=== PATIENT | female | born 1960 | race Caucasian/White ===

== ENCOUNTER 2017-02-05 07:30 | Inpatient (IN) | payer BC ==
--- NOTE | 2017-01-20 14:00 | NUR ---
JOINT REPLACEMENT PREOP CLASS PATIENT ATTENDED JOINT REPLACEMENT PREOP CLASS. CASE MANAGEMENT CONTACT INFORMATION PROVIDED. EDUCATION WAS PROVIDED REGARDING WHAT TO EXPECT BEFORE, DURING AND AFTER SURGERY. INCLUDING: OVERVIEW OF ANATOMY AND PHYSIOLOGY HOSPITAL TREATMENT SCHEDULE THERAPY DEMONSTRATION CASE MANAGEMENT RESPONSIBILITIES DISCHARGE PLANNING EQUIPMENT NEEDS JOINT REPLACEMENT WORKBOOK ANTI-COAGULATION SURGERY STRONG NUTRITIONAL PROTOCOL DISCHARGE INSTRUCTIONS [facility] PATIENT PORTAL, WITH INSTRUCTIONS CJR AND PREOP SURVERY PREOP BATHING- CHG GIVEN ALL PATIENT'S QUESTIONS ANSWERED TO THEIR SATISFACTION. PATIENTS AND COACHES ENCOURAGED TO CALL WITH ANY ADDITIONAL QUESTIONS OR CONCERNS. CM FOLLOWING FOR TRANSITIONAL CARE PLANNING NEEDS DURING HOSPITALIZATION.
[~2017-02-05] VITALS: Ht 162.6 cm; Wt 102.0 kg
[2017-02-05] VITALS (24 sets, daily range): BP systolic 125–189; BP diastolic 65–90; PULSE 54–78; RESP 12–20; TEMP 97.6–98.5; O2SAT 91–98; Ht 162.6 cm; Wt 102.0 kg
[~2017-02-05 07:30] MED LIST: ACET-2723 PO; ACETAMINOPHEN 500 MG TABLET PO ONE; DEXAMETHASONE 4mg/ml - 1ml INJECTION IV ONE; ENOX100D SQ; ENOX80DI SQ; FAMOTIDINE 20mg IVPB 50 ML IV ONE; GLUC100015 PO; LIDOCAINE 1% (10mg/ml) 2ml SDV SQ ONE; LR 1,000 ML IV SCH; METOCLOPRAMIDE 10mg/2ml INJECTION IV ONE; MULT1TAB69 PO; NOZIN NASAL SWAB NS ONE; ONDANSETRON 4mg/2ml INJECTION IV ONE; WARF10TA21 PO; [UNRECOGNIZED DRUG - CODE] PO
--- OUTSIDE RECORDS SUMMARY | 2017-02-05 07:53 | XMS REPORT | Continuity of Care Document ---
Author Author [facility] Organization [facility] Address Unknown Phone Unavailable Care Team Providers Care Straddle Truck Driver Name Role Phone ISSA SKINNER MD Primary Care Physician [phone] Insurance Providers Payer Name Policy Number Subscriber Name Relationship [facility] [id number] Avis Shell 18 Self Advance Directives Directive Response Recorded Date/Time Ordered Resuscitation Status Full Code 11/08/14 11:34am Resuscitation Documents on File No 11/08/14 10:43am Problems No known problems or medical conditions. Medications Medication Dose Route Sig Days/Qty Instructions Order Date Discontinued Date Status Warfarin Sodium 10 Mg PO EVERY OTHER DAY 04/04/09 Active Warfarin Sodium 12.5 Mg PO EVERY OTHER DAY 04/04/09 Active Enoxaparin Sodium 70 Mg SQ DAILY 04/05/09 Active Calcium Carb/Vit D3/Minerals 1 Tab PO DAILY 11/08/14 Active Fish Oil/Dha/Epa 1,200 Mg PO DAILY 11/08/14 Active Multivitamin 1 Tab PO DAILY 11/08/14 Active Social History Social History Problem Response Recorded Date/Time Chewing Tobacco Status No 11/08/2014 10:39am Hx Substance Use No 11/08/2014 10:39am Hx Alcohol Use Y RARE 11/08/2014 10:39am Has the pt used tobacco in the last 12 months No 11/08/2014 10:39am Query Response Start Date Stop Date Smoking Status Never smoker Hospital Discharge Instructions No hospital discharge instructions. Plan of Care No plan of care. Functional Status No functional status results. Allergies, Adverse Reactions, Alerts Allergen Type Severity Reaction Status Last Updated No Known Drug Allergies Allergy Unknown Active 04/04/09 Immunizations Name Given Type Hx Influenza Vaccination Y 09/2014 Historical Hx Pneumococcal Vaccination No Historical Hx Influenza Vaccination Y 09/2014 Historical Vital Signs Acute Vital Signs Vital Response Date/Time Temperature (Fahrenheit) 98.2 deg F (96.8 - 99.1) Temperature (Calculated Celsius) 36.94174 degrees C (36.0 - 37.3) Temperature Source Temporal Pulse Rate (adult) 69 bpm (60 - 100) Respiratory Rate 17 breaths/min (10 - 20) O2 Sat by Pulse Oximetry 96 % (90 - 100) Oxygen Delivery Method Room Air Blood Pressure 164/84 mm Hg Blood Pressure Source Automatic Cuff Height 5 ft 5.5 in Weight 227 lb Body Mass Index 37.0 kg/m^2 Results Test Source Date Result Interp. Ref. Range Comments Activated Partial Thromboplast Time April 05, 2009 11:49am 23.3 SEC L 25- 36 Anion Gap April 05, 2009 11:49am 7.8 MEQ/L N 5-15 BUN/Creatinine Ratio April 05, 2009 11:49am 22 RATIO N 6-26 Basophils # (Auto) April 05, 2009 11:49am 0.0 T/MM3 N 0-0.2 Basophils (%) (Auto) April 05, 2009 11:49am 0.7 % N 0-2 Blood Urea Nitrogen April 05, 2009 11:49am 17.8 MG/DL H 7-17 Calcium Level April 05, 2009 11:49am 9.3 MG/DL N 8.4-10.2 Calculated Osmolality April 05, 2009 11:49am 276 MOSM/KG N 261-280 Carbon Dioxide Level April 05, 2009 11:49am 33 MEQ/L H 22-30 Chloride Level April 05, 2009 11:49am 102 MEQ/L N 98-107 Creatinine April 05, 2009 11:49am 0.8 MG/DL N 0.7-1.2 Eosinophils # (Auto) April 05, 2009 11:49am 0.1 T/MM3 N 0-0.5 Eosinophils (%) (Auto) April 05, 2009 11:49am 1.3 % N 0-4 Glomerular Filtration Rate Calc April 05, 2009 11:49am 77 - Glucose Level April 05, 2009 11:49am 78 MG/DL N 65-110 Hematocrit April 05, 2009 11:49am 42.8 % N 36-46 Hemoglobin April 05, 2009 11:49am 14.0 GM/DL N 12-16 Lymphocytes # (Auto) April 05, 2009 11:49am 1.9 T/MM3 N 1-4.8 Lymphocytes (%) (Auto) April 05, 2009 11:49am 41.8 % N 23-45 Mean Corpuscular Hemoglobin April 05, 2009 11:49am 31.5 UUG N 26-34 Mean Corpuscular Hemoglobin Concent April 05, 2009 11:49am 32.7 GM/DL N 31-37 Mean Corpuscular Volume April 05, 2009 11:49am 96.2 UM3 N 80-100 Mean Platelet Volume April 05, 2009 11:49am 10.3 UM3 N 7.4-10.4 Monocytes # (Auto) April 05, 2009 11:49am 0.4 T/MM3 N 0-0.8 Monocytes (%) (Auto) April 05, 2009 11:49am 8.8 % N 0-9.0 Neutrophils # (Auto) April 05, 2009 11:49am 2.2 T/MM3 N 1.8-7.7 Neutrophils (%) (Auto) April 05, 2009 11:49am 47.4 % N 33-66 Platelet Count April 05, 2009 11:49am 213 T/MM3 N 130-400 Potassium Level April 05, 2009 11:49am 4.5 MEQ/L N 3.6-5 Prothromb Time International Ratio November 09, 2014 9:23am 1.20 H 0.81- 1.09 THERAPUTIC RANGE=2.00-3.00 FOR ANTI-THROMBOSIS THERAPUTIC RANGE=2.50- 3.50 FOR IMPLANTED VALVE RDW Standard Deviation April 05, 2009 11:49am 48.2 FL N 36.9-50.2 Red Blood Count April 05, 2009 11:49am 4.45 M/MM3 N 4.00-5.20 Sodium Level April 05, 2009 11:49am 143 MEQ/L N 134-144 White Blood Count April 05, 2009 11:49am 4.6 T/MM3 N 4.5-11.0 Procedures Procedure Status Date Provider(s) Colonoscopy completed 11/09/14 BRANDYN JONES MD, FACS, CWS
--- OUTSIDE RECORDS SUMMARY | 2017-02-05 07:53 | XMS REPORT | Continuity of Care Document ---
Author Author [facility] Organization [facility] Address Unknown Phone Unavailable Care Team Providers Care Professional Shopper Name Role Phone ISSA SKINNER MD Primary Care Physician [phone] Insurance Providers Payer Name Policy Number Subscriber Name Relationship [facility] [id number] Avis Shell 18 Self Advance Directives Directive Response Recorded Date/Time Resuscitation Documents on File No 11/11/14 1:06pm Problems No known problems or medical conditions. [...] History Social History Problem Response Recorded Date/Time Hx Substance Use No 11/08/2014 10:39am Hx Alcohol Use Y RARE 11/08/2014 10:39am Has the pt used tobacco in the last 12 months No 11/11/2014 1:05pm Query Response Start Date Stop Date Smoking Status Never smoker Hospital Discharge Instructions No hospital discharge instructions. Plan of Care No plan of care. Functional Status No functional status results. Allergies, Adverse Reactions, Alerts Allergen Type Severity Reaction Status Last Updated No Known Drug Allergies Allergy Unknown Active 11/11/14 Immunizations Name Given Type Hx Influenza Vaccination Y 09/2014 Historical Hx Pneumococcal Vaccination No Historical Hx Influenza Vaccination Y 09/2014 Historical Vital Signs Acute Vital Signs Vital Response Date/Time Temperature (Fahrenheit) 97.5 deg F (96.8 - 99.1) Temperature (Calculated Celsius) 36.77521 degrees C (36.0 - 37.3) Temperature Source Temporal Pulse Rate (adult) 64 bpm (60 - 100) Respiratory Rate 16 breaths/min (10 - 20) Height 5 ft 5 in Weight 235 lb Body Mass Index 39.0 kg/m^2 Results Test Source Date Result Interp. [...] 05, 2009 11:49am 1.3 % N 0-4 Glucose Level April 05, 2009 11:49am 78 [...] 05, 2009 11:49am 4.6 T/MM3 N 4.5-11.0 Glomerular Filtration Rate Calc April 05, 2009 11:49am 77 - Procedures Procedure Status Date Provider(s) Colonoscopy with polypectomy and biopsy completed 11/09/14 BRANDYN JONES MD, FACS, CWS Encounters Encounter Location Date/Time Discharged Recurring [facility] 11/12/14 12:45pm
--- OUTSIDE RECORDS SUMMARY | 2017-02-05 07:53 | XMS REPORT | Referral Summary ---
Author Author [facility] Organization [facility] Address Unknown Phone Unavailable Care Team Providers Care Credit Representative Name Role Phone Whitney Orellana Primary Care Physician [phone] Encounter Date(s): 07/02/16 - 07/02/16 [facility] [address] [place] [address] Discharge Diagnosis: Hypertension Discharge Diagnosis: Bilateral knee pain Discharge Diagnosis: Obesity Discharge Diagnosis: Well woman exam (no gynecological exam) Discharge Diagnosis: Anticoagulant long-term use Discharge Diagnosis: Dyslipidemia Discharge Disposition: 01-Home or Self Care Attending Physician: Jeannette Haynes APRN Admitting Physician: Jeannette Haynes APRN Vital Signs Most recent to 1 oldest [Reference Range]: Temperature Tympanic 36.3 degC [36.6-38.1 degC] *LOW* (07/02/16 8:34 AM) Peripheral Pulse 78 bpm Rate [60-100 bpm] (07/02/16 8:34 AM) Blood Pressure 144/94 mmHg [90-140/60-90 mmHg] *HI* (07/02/16 8:34 AM) Problem List Condition Effective Dates Status Health Status Informant Carpal tunnel Active syndrome(Confirmed) Ovarian Active cyst(Confirmed) Dyslipidemia(Confirm Active ed) Factor VIII Active deficiency(Confirmed ) Anticoagulant Active long-term use(Confirmed) History of DVT of < 09/07/14 Resolved lower extremity(Confirmed) Hypertension(Confirm Active ed) Obesity(Confirmed) Active Allergies, Adverse Reactions, Alerts No Known Medication Allergies Medications Fish Oil 1000 mg oral capsule 1 caps, Oral, Daily, 0 Refill(s) Start Date: 09/05/14 Status: Ordered glucosamine/chondroitin/methylsulfonylmethane 2 tabs, Oral, Daily, 0 Refill(s) Start Date: 07/02/16 Status: Ordered Misc Medication calcium 1200 mg and 1,000 IU vit D3, 0 Refill(s) Start Date: 07/02/16 Status: Ordered multivitamin 1 tabs, Oral, Daily, 50+, 0 Refill(s) Start Date: 09/05/14 Status: Ordered Tylenol Extra Strength 1,000 mg, Oral, BID, as needed for pain, 0 Refill(s) Start Date: 07/02/16 Status: Ordered warfarin 5 mg oral tablet See Instructions, TAKE 2 TABLETS BY MOUTH EVERY DAY or as instructed by , # 200 tabs, 3 Refill(s), Pharmacy: [facility] (Mail Order) Electronic, TAKE 2 TABLETS BY MOUTH EVERY DAY or as instructed by Start Date: 06/11/16 Status: Ordered Results Hematology Most recent to 1 oldest [Reference Range]: WBC [4.8-10.8 2.7 10*3/uL 10*3/uL] *LOW* (07/02/16 9:15 AM) RBC [4.00-5.20] 4.50 (07/02/16 9:15 AM) Hgb [12.0-16.0 14.0 gm/dL gm/dL] (07/02/16 9:15 AM) Hct [37.0-47.0 %] 40.9 % (07/02/16 9:15 AM) MCV [82.0-99.0 fL] 90.9 fL (07/02/16 9:15 AM) MCH [27.0-32.0 pg] 31.1 pg (07/02/16 9:15 AM) MCHC [32.0-36.0 34.2 gm/dL gm/dL] (07/02/16 9:15 AM) RDW [11.5-14.5 %] 15.4 % *HI* (07/02/16 9:15 AM) Platelet [150-400 219 10*3/uL 10*3/uL] (07/02/16 9:15 AM) MPV [8.8-14.8 fL] 11.0 fL (07/02/16 9:15 AM) Neutrophils [51-75 40 % %] *LOW* (07/02/16 9:15 AM) Lymphocytes [20-46 41 % %] (07/02/16 9:15 AM) Abn Lymph Man [0-5 2 % %] (07/02/16 9:15 AM) Monocytes [4-11 %] 15 % *HI* (07/02/16:15 AM) Eosinophils [0-4 %] 1 % (07/02/16 9:15 AM) Basophils [0-2 %] 1 % (07/02/16 9:15 AM) Neutro Absolute 1.08 10*3 [1.90-7.00 10*3] *LOW* (07/02/16:15 AM) Lymph Absolute 1.16 10*3 [0.80-3.30 10*3] (07/02/16 9:15 AM) Mckinley Absolute 0.41 10*3 [0.30-1.00 10*3] (07/02/16:15 AM) Eos Absolute 0.03 10*3 [0.00-0.50 10*3] (07/02/16 9:15 AM) Baso Absolute 0.03 10*3 [0.00-0.20 10*3] (07/02/16:15 AM) Differential Manual *ABN* (07/02/16:15 AM) Coagulation Most recent to 1 oldest [Reference Range]: PT Venous (07/02/16:15 AM) INR [0.8-1.2] 1.8 1 *HI* (07/02/16 9:15 AM) 1Result Comment: Normal (no anticoagulant): 0.8 - 1.2 Units Routine Therapeutic Range: 2.0 - 3.0 Units High Risk Therapeutic Range: 2.5 - 3.5 Units Chemistry Most recent to 1 oldest [Reference Range]: Sodium Lvl [135-144 140 mEq/L mEq/L] (07/02/16:15 AM) Potassium Lvl 4.3 mEq/L [3.5-5.2 mEq/L] (07/02/16:15 AM) Chloride [99-111 105 mEq/L mEq/L] (07/02/16 9:15 AM) CO2 [22-31 mEq/L] 31 mEq/L (07/02/16 9:15 AM) AGAP [3-20] 4 (07/02/16 9:15 AM) BUN [10-20 mg/dL] 14 mg/dL (07/02/16:15 AM) Glucose Lvl [70-99 86 mg/dL mg/dL] (07/02/16:15 AM) Creatinine Lvl 0.76 mg/dL [0.57-1.11 mg/dL] (07/02/16:15 AM) eGFR [>60 mL/min] >60 mL/min 1 (07/02/16:15 AM) Calcium Lvl 9.6 mg/dL [8.9-10.5 mg/dL] (07/02/16:15 AM) Albumin Lvl [3.5-5.0 4.1 gm/dL gm/dL] (07/02/16:15 AM) Total Protein 6.5 gm/dL [6.1-7.7 gm/dL] (07/02/16:15 AM) Globulin [1.8-4.0 2.4 gm/dL gm/dL] (07/02/16:15 AM) ALT [0-55 U/L] 13 U/L (07/02/16:15 AM) AST [5-34 U/L] 19 U/L (07/02/16:15 AM) Alk Phos [40-150 59 U/L U/L] (07/02/16:15 AM) Bili Total [0.2-1.2 1.1 mg/dL mg/dL] (07/02/16:15 AM) Chol [0-199 mg/dL] 225 mg/dL *HI* (07/02/16:15 AM) Trig [0-149 mg/dL] 60 mg/dL (07/02/16:15 AM) HDL [40-84 mg/dL] 61 mg/dL (07/02/16:15 AM) LDL [0-130 mg/dL] 152 mg/dL *HI* (07/02/16:15 AM) VLDL Cholesterol 12 mg/dL [0-28 mg/dL] (07/02/16:15 AM) Cardiac Risk 3.7 [0.0-5.0] (07/02/16:15 AM) TSH with Reflex Free 2.06 T4 [0.35-4.94] (07/02/16 9:15 AM) Hgb A1c [4.1-5.6 %] 4.9 % (07/02/16 9:15 AM) eAvg Glucose 93.9 mg/dL (07/02/16 9:15 AM) 1Result Comment: Multiply eGFR results by 1.21 for race. Immunizations Vaccine Date Refusal Reason tetanus/diphth/pertuss (Tdap) adult/adol 09/28/12 influenza virus vaccine, inactivated 07/02/16 influenza virus vaccine, inactivated1 09/07/14 influenza virus vaccine, live 09/28/12 1Result Comment: [09/07/2014] see scanned document Procedures Procedure Date Related Diagnosis Body Site Collection of venous blood by venipuncture 07/02/16 Colonoscopy1 11/09/14 Mammogram - screening 09/07/14 Pap smear for cervical cancer screening 09/28/12 Carpal tunnel release-rt Cholecystectomy Oophorectomy-rt Surgery-fractured arm 1Hyperplastic polyp, repeat in 10 years Social History Social History Type Response Smoking Status Never smoker Assessment and Plan Extracted from: Title: Office Visit Note-WWE Author: Jeannette Haynes OIL HEAT TECHNICIAN Date: 07/02/16
[2017-02-05] MEDS ORDERED: EPINEPHRINE 0.25 MG, BUPIVACAINE 0.25% 75 MG, MORPHINE SULFATE 15 MG, KETOROLAC 60 MG i... INJ ONE ×5 (08:00)
[2017-02-05 08:31] LABS: BASOPHILS % (AUTO) 1.3 % (0-2); HCT - HEMATOCRIT 41.3 % (36-46); HGB - HEMOGLOBIN 13.2 GM/DL (12-16); LYMPHOCYTES # (AUTO) 1.3 T/MM3 (1-4.8); LYMPHOCYTES % (AUTO) 42.7 % (23-45); MEAN CORPUSCULAR HGB 29.9 UUG (26-34); MEAN CORPUSCULAR VOLUME 93.7 UM3 (80-100); MEAN PLATELET VOLUME 11.1 UM3 (9.4-12.4); MONOCYTES # (AUTO) 0.3 T/MM3 (0-0.8); NEUTROPHILS #(AUTO)-ABSOLUTE 1.4 T/MM3 (1.8-7.7); RED BLOOD COUNT 4.41 M/MM3 (4.00-5.20)
[2017-02-05 08:35] LABS: INR 1.05 (0.76-1.04); PROTHROMBIN TIME 11.4 SEC (9.31-12.49)
--- NOTE | 2017-02-05 09:58 | ANESPREOP ---
Anesthesia Record Date and Time DATE: 02/05/17 TIME: 09:53 Pre-Op Diagnosis Right knee degeneration Proposed Surgical Procedure LT TKA NPO since: Midnight Allergies: Coded Allergies: No Known Drug Allergies (Verified Allergy, Unknown, 11/11/14) Ht/Wt/BMI Height: 5 ' 4.00 " Weight: 101.600 kg BMI: 38.5 kg/m2 Vital Signs Date Time Temp Pulse Resp B/P Pulse Ox O2 Delivery O2 Flow Rate FiO2 02/05/17 08:36 70 16 02/05/17 08:12 98.5 184/90 96 Room Air Medications Inpatient Medications Current Medications Medications (Trade) Dose Ordered Sig/Dhiraj Start Time Stop Time Status Last Admin Dose Admin Lactated Ringer's (Lactated Ringers) 1,000 ml @ 50 mls/hr Q20H 02/05/17 07:00 02/05/17 08:51 50 MLS/HR Acetaminophen (Tylenol Extra Strength) 500 Mg Tablet, 1-2 TAB PO Q6H PRN for PAIN/FEVER, (Reported) Last Taken: on 01/22/17 Calcium Carb/Vit D3/Minerals (Calcium 1,200 mg Tablet Chew) 1 Each Tab.chew, 1 TAB PO DAILY, (Reported) ON MON, THU, FRI Last Taken: on 02/04/17 0700 Enoxaparin Sodium (Lovenox) Unknown Strength Disp.syrin, Unknown Dose SQ DAILY, (Reported) Last Taken: on 02/04/17 0700 Enoxaparin Sodium (Lovenox) 100 Mg/Ml Syringe, 1 UNIT SQ BID, (Reported) Last Taken: on 02/04/17 0700 Glucosamine Sulfate 2Kcl (Glucosamine) 1,000 Mg Tablet, 1 TAB PO DAILY, (Reported) Last Taken: on 01/22/17 Multivitamin (Multivitamins) 1 Each Tablet, 1 TAB PO DAILY, (Reported) Last Taken: on 02/04/17 0700 Warfarin Sodium (Warfarin Sodium) 10 Mg Tablet, 12.5 MG PO DAILY, (Reported) Last Taken: on 01/31/17 Currently on Beta Kita: No Medical/Surgical History Anesthesia PMH: Reports: *Hypertension (HX OF, BETTER SINCE LOSING WEIGHT), Anesthesia Reactions ("FEELS LIKE SHE IS DROWNING",NO AIRWAY ISSUES KNOWN), Clotting Problems (FACTOR VIII DISORDER/ Hypercoagulable), Deep Vein Thrombosis (HX OF IN B LE), Denies: *Angina, *Diabetes, *NM, Asthma, CHF, COPD, CVA/Stroke/TIA, Cancer, Glaucoma, Malignant Hyperthermia, Rheumatic Fever, Seizures, Sleep Apnea, Thyroid Disease Smoking Status: Never smoker Has pt. smoked today?: No Use Chewing Tobacco?: No Second Hand Exposure: No Substance Use Type: does not use Alcohol Intake: none HX of Last Menstrual Period: 2.5 YEARS AGO Past Surgical History Orthopedic Surgeries: Yes - BROKE BOTH ARMS - REPAIRED, BUNIONECTOMY, R CTR Abdominal Surgeries: Yes - OPEN IVAN/RT OOPHORECTOMY Genitourinary Surgeries: Cardiac Surgeries: Endocrine Surgeries: Reproductive Surgeries: Yes - RSO Neurological Surgeries: Ear Surgeries: Nose Surgeries: Throat Surgeries: Other Surgeries: Yes - BROKE BOTH ARMS - REPAIRED, BUNIONECTOMY, R CTR Anesthesia Adverse Reactions: FOUND none Family Hx of Anesthesia Advers: none Hx of Motion Sickness: No Pertinent Findings Laboratory Tests 02/05/17 08:23 Test 02/05/17 08:23 Prothromb Time International Ratio 1.05 (0.76-1.04) EKG Rhythm: Sinus Rhythm Physical Exam Respiratory: Lungs clear Cardiovascular: FOUND Regular rate, rhythm Airway Assessment Mallampati Score: II TMD: 3 Fingerbreadths Neck Extension: Good Overall Assessment: May Be Diff Intubation ASA: 3 Plan Regional: Spinal Discussion Discussed risks/options/alternatives of anesthesia and questions answered. Patient consents. Nursing pain assessment noted. Present: Family Member Attestation Statement Prior to the delivery of any anesthetic medication, I examined the patient, developed the plan, obtained the patient's consent and discussed the risk and benefits of the procedure with the patient/guardian. SURENDRA LOJA CONTACT LENS EDGE BUFFER Feb 05, 2017 09:58
[2017-02-05] MEDS ORDERED: PROPOFOL 500mg 50 ML IV ONE ×2 (10:04→11:21)
[2017-02-05] MEDS ORDERED: MIDAZOLAM 2mg/2ml INJECTION ONE (10:04)
[2017-02-05] MEDS ORDERED: VANCOMYCIN 1 GRAM INJECTION ONE (11:37)
[2017-02-05] MEDS ORDERED: CEFAZOLIN 2 GM VIAL IV ONE (11:45)
[2017-02-05] MEDS ORDERED: PHENYLEPHRINE 10mg/ml INJECTION ONE (11:48)
--- NOTE | 2017-02-05 11:54 | ANESPD ---
Peripheral Nerve Blockade Physician: Connor Guevara MD Date: 02/05/17 Discussion Discussed risks/options/alternatives of anesthesia and questions answered. Patient consents. Nursing pain assessment noted. Block Start: 13:05 Block Stop: 13:06 Block Employed: Adductor Canal, Single Injection Indication: post-operative pain Approach: left side confirmed Position: supine Patient: Consent, risks/benefits discussed, Informed, post block act. discussed Monitors: EKG, SpO2, NIBP IV Sedation: No Initial Vital Signs First Documented Vital Signs Date Time Temp Pulse Resp B/P Pulse Ox O2 Delivery O2 Flow Rate FiO2 02/05/17 08:12 98.5 70 16 184/90 96 Room Air Post Vital Signs Vital Signs Date Time Temp Pulse Resp B/P Pulse Ox O2 Delivery O2 Flow Rate FiO2 02/05/17 08:36 70 16 02/05/17 08:12 98.5 184/90 96 Room Air Initial Pain Score: 0 Post Block Score: 0 Prep: chlorhexadine/ETOH Ultrasound Used?: Yes (see ultrasound image in EMR) Injectate Ropivacaine (%): .5 Ropivacaine (mL): 20 Was Epi 1:200,000 Used?: No Injection Injection made incrementally with constant monitoring and aspiration every 5 ml. OSCAR MCALLISTER Feb 05, 2017 11:54
--- NOTE | 2017-02-05 12:30 | PDOPERATE ---
Operative Report Date of Operation 02/05/17 Side: Left Preoperative Diagnosis: knee primary DJD Postoperative Diagnosis Same as preoperative diagnosis. Operation/Procedure: total knee arthroplasty (left) Surgeon Vi Guevara MD Button Sewing Machine Operator TATI Fung Complications None. Regional Block: Spinal Estimated Blood Loss See Anesthesia Record. Fluids Please See Anesthesia Record. Description of Operation Ms. Veliz and her left hip were identified and marked in the the preoperative holding area. She was then brought back to the operating suite and proper anesthesia was administered. She was then positioned lateral on the operating table. The left lower extremity was then prepped and draped in my normal sterile fashion. Timeout was performed with all operating room personnel. The leg was exsanguinated and tourniquet inflated 250 mmHg. A standard anterior incision followed by a medial parapatellar approach was utilized. She had severe disease in both medial and patellofemoral joint. A distal femoral cut was made in 5 of valgus using intramedullary guide. The femur was sized at a 4 and rotation set using the epicondylar axis. Distal femoral cuts were performed. A proximal tibial cut was made using extramedullary guide. Remaining osteophytes and meniscus were removed. The tourniquet was let down. Gaps were checked and they were well balanced and rectangular after larger medial release. Trial components were placed with a 9 mm spacer. This allowed for full range of motion and the patella tracked well. The knee was stable throughout range of motion. The patella was resurfaced with the knee in extension to a size 32. The tibia rotation was then marked and the tibia stamped at the proper rotation at a size 4. The tourniquet was reinflated for cementing. The bone was prepared for cementing and all components cemented into place and allowed to cure in extension. Betadine solution was used for 3 minutes during the curing period and then fully irrigated out with 1 L of normal saline. 1 g of TXA was then placed into the joint allowed to sit for 5 minutes. The tourniquet was deflated and hemostasis obtained with electrocautery. After the cement had cured the knee was taken through range of motion check for balance and stability which were good. Vancomycin powder was placed into the wound. The arthrotomy was closed with #1 Vicryl. The remainder of the wound was then closed by my judicial administrative assistant utilizing 2-0 vycral in the subcutaneous tissue. 4-0 monocryl was used in the subcuticular layer followed by dermabond and a sterile dressing. After closure the patient will be transferred to the recovery room under the care of anesthesia. ALIDA GUEVARA MD Feb 05, 2017 12:29
[2017-02-05] MEDS ORDERED: ROPIVACAINE 0.5% (5mg/ml) 30ml INJ ONE (12:36)
[2017-02-05] MEDS ORDERED: TRANEXAMIC ACID 1000 MG/10 ML TOP ONE (12:45)
[2017-02-05] MEDS ORDERED: NAPROXEN 220 MG TABLET PO PRN (13:00)
[2017-02-05] MEDS ORDERED: NOZIN NASAL SWAB NS ONE (13:00)
[2017-02-05] MEDS ORDERED: PRN ORDERS MC (13:00)
[2017-02-05] MEDS ORDERED: METOCLOPRAMIDE 10mg/2ml INJECTION IV PRN (13:00)
[2017-02-05] MEDS ORDERED: TRAMADOL 50 MG TABLET PO PRN (13:00)
[2017-02-05] MEDS ORDERED: DiphenhydrAMINE 25 MG CAPSULE PO PRN (13:00)
[2017-02-05] MEDS ORDERED: SENNOSIDES 8.6 MG TABLET PO PRN (13:00)
[2017-02-05] MEDS ORDERED: LORAZEPAM 1 MG TABLET PO PRN (13:00)
[2017-02-05] MEDS ORDERED: ONDANSETRON 4mg/2ml INJECTION IV PRN (13:00)
[2017-02-05] MEDS ORDERED: DiphenhydrAMINE 50 MG/ML INJECTION IV PRN (13:00)
--- NOTE | 2017-02-05 13:10 | ANESPO ---
Post-Op Note Date 02/05/17 Time: 13:09 Status Pt Participated in Evaluation: Pt participated in person Vital Signs Date Time Temp Pulse Resp B/P Pulse Ox O2 Delivery O2 Flow Rate FiO2 02/05/17 08:36 70 16 02/05/17 08:12 98.5 184/90 96 Room Air Respiratory Function: Airway patent Cardiovascular Function: Regular pulse Telemetry Pattern: SR Mental Status: Alert/oriented Pain Level Intensity: 0 Unable to Assess Pain Due To: INTRA OP Hydration: IV infusing Complications during Recovery None apparent Follow-Up Instructions Instructions Per Surgeon SURENDRA LOJA CRNA Feb 05, 2017 13:10
--- NOTE | 2017-02-05 13:38 | NUR ---
ADMIT PT TO ROOM 111 PER OR CART. TRANSFERRED TO .. BED WITH ASSIST OF 3 USING SLIDE BOARD. POLAR PACK IN PLACE OVER KAVON WRAP. NO DRAINAGE NOTED ON DRESSING. PT ABLE TO MOVE LE BI-LAT BUT VERBALIZES REDUCED FEELING BI-LAT WELL.
[2017-02-05] MEDS: NORMAL SALINE 1,000 ML IV SCH (13:52)
[2017-02-05] MEDS: ACETAMINOPHEN 325 MG TABLET PO SCH ×3 (13:58→21:50)
[2017-02-05] MEDS: NOZIN NASAL SWAB NS SCH ×2 (14:00→21:49)
--- NOTE | 2017-02-05 14:58 | NUR ---
COUMADIN CONSULT (Initial): 56 y.o. female with history of clotting factor VIII deficiency and chronic Warfarin anticoagulation. Home dose= 12.5 mg po daily. Pharmacy consulted for Warfarin protocol post op. goal INR= 2 to 3. date INR dose 02/05 1.05 plan: 12.5 mg Will give Warfarin 12.5 mg po today. Patient is on Lovenox 100 mg sq BID while INR is subtherapeutic. no significant drug-drug interactions noted. Will continue to monitor and make adjustments accordingly. Thank you for the protocol, Lynn Quach RPh
--- NOTE | 2017-02-05 15:14 | DI ---
Indication: ITS.REASON: POST OP left knee replacement PROCEDURE: KNEE LEFT 2 VIEW: Encounter: Initial Comparison: None Findings: Postoperative changes of left total knee replacement are seen. There is expected postoperative subcutaneous gas. No evidence of hardware failure or acute fracture. No retained radiopaque surgical instruments or sponges. Overlying material causing artifact. Impression: New left total knee prosthesis without evidence of immediate complication. .
[2017-02-05] MEDS ORDERED: WARFARIN 5 MG TABLET PO ONE (16:00)
[2017-02-05] MEDS: CEFAZOLIN 2 G in NORMAL SALINE 100 ML IV SCH (18:55)
--- NOTE | 2017-02-05 19:26 | NUR ---
SUMMARY PT STATES PAIN IS CONTROLLED BY TYLENOL AT THIS TIME. NO BLEEDING NOTED ON DRESSING. EATING SOLID FOOD WITHOUT N/V. ABLE TO WALK WITH ASSIST OF 1 USING GB AND WALKER. VOIDING ADEQUATELY.
[2017-02-05] MEDS: ENOXAPARIN 100 MG/ML INJECTION SQ SCH (21:51)
[2017-02-05] MEDS ORDERED: SENNOSIDES 8.6 MG TABLET PO SCH (22:00)
--- NOTE | 2017-02-05 22:30 | NUR ---
Ambulation Pt requested to ambulate twice this evening - once at 2030 and the other at 2230. RN assist x1, gait belt, walker. Steady gait. Walked from room 111 to Lab hallway, back to surgical unit, down to [facility] windows and back to room. Pt tolerating very well. Denies pain.
[2017-02-06 00:26] VITALS: BP 109/54; PULSE 62; RESP 14; TEMP 97.8; O2SAT 96
[2017-02-06] MEDS: NORMAL SALINE 1,000 ML IV SCH (02:21)
[2017-02-06] MEDS: CEFAZOLIN 2 G in NORMAL SALINE 100 ML IV SCH (02:21)
[2017-02-06 04:15] VITALS: BP 129/67; PULSE 64; RESP 16; TEMP 96.9; O2SAT 95
[2017-02-06] MEDS: NOZIN NASAL SWAB NS SCH (05:08)
--- NOTE | 2017-02-06 05:22 | NUR ---
Shift Summary Pt slept off and on between cares. Denies need for additional pain meds other than scheduled Tylenol. Pt requested to walk twice yesterday evening. Ambulated with assist x1, gait belt, walker. Doing very well. Up to restroom several times. Polar pack in place and refreshed throughout shift. NS@80 infusing. VSS. Pt remains on RA. A&Ox3 and appropriate.
[2017-02-06 05:39] LABS: ANION GAP 5 MEQ/L (5-15); BUN/CREATININE RATIO 20 RATIO (6-26); CALCIUM 8.8 MG/DL (8.4-10.2); CHLORIDE 107 MEQ/L (98-107); CO2 - CARBON DIOXIDE 31 MEQ/L (22-30); CREATININE 0.8 MG/DL (0.7-1.2); GLOMERULAR FILTRATION RATE 74; GLUCOSE 100 MG/DL (65-110); INR 1.17 (0.76-1.04); POTASSIUM 3.8 MEQ/L (3.6-5); PROTHROMBIN TIME 12.7 SEC (9.31-12.49); SODIUM 143 MEQ/L (134-144)
[2017-02-06 05:41] LABS: HCT - HEMATOCRIT 33.9 % (36-46); HGB - HEMOGLOBIN 10.5 GM/DL (12-16); MEAN CORPUSCULAR HGB 29.3 UUG (26-34); MEAN CORPUSCULAR VOLUME 94.7 UM3 (80-100); MEAN PLATELET VOLUME 11.8 UM3 (9.4-12.4); RED BLOOD COUNT 3.58 M/MM3 (4.00-5.20); WBC - WHITE BLOOD COUNT 5.6 T/MM3 (4.5-11.0)
[2017-02-06 07:30] VITALS: BP 140/80; PULSE 64; PULSE 70; RESP 16; TEMP 97.2; O2SAT 99
--- NOTE | 2017-02-06 08:20 | PDORTHOPN ---
Subjective Date DATE: 02/06/17 TIME: 08:16 Subjective Avis is doing very well. Pain is very well controlled. Denies any other specific complaints. 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 No CP, cough or SOA. Objective Vital Signs Vital signs Vital Signs 02/05/17 02/05/17 02/05/17 02/06/17 20:24 22:30 23:00 00:26 Temp 97.6 97.8 Pulse 78 64 66 62 Resp 16 18 18 14 B/P 133/77 109/54 Pulse Ox 95 91 96 O2 Delivery Room Air Room Air Room Air Room Air 02/06/17 02/06/17 02/06/17 04:15 07:30 07:30 Temp 96.9 97.2 Pulse 64 70 64 Resp 16 16 16 B/P 129/67 140/80 Pulse Ox 95 99 O2 Delivery Room Air Room Air Height (Feet): 5 Height (Inches): 4.00 Weight (Kilograms): 101.600 General General Appearance: No Acute Distress Respiratory (Brief) Respiratory Brief: FOUND: non-labored Cardiovascular (Brief) Cardiac: FOUND: calf easily compressible, calf soft, nontender, pedal pulses intact Surgical Site Incision: FOUND: Mepilex dressing intact, no drainage Neurologic (Brief) Neurological Brief: FOUND: extremities w/o deficits, neuro intact Laboratory Laboratory Laboratory Tests 02/05/17 08:23 02/06/17 05:00 Laboratory Tests 02/06/17 05:00 Assessment & Plan Problems: (1) Degenerative arthritis of left knee Status: Chronic Qualifiers: Osteoarthritis type: primary Qualified Codes: M17.12 - Unilateral primary osteoarthritis, left knee Assessment & Plan: Lovenox 100mg Q 12hrs and Coumadin protocol for VTE prophylaxis. SCD's and early mobilization encourage. Labs look good. She is afebrile. PT/OT services to improve independent function. Discharge Planning per Case Management. (2) Factor VIII deficiency Status: Chronic Assessment & Plan: Resume Lovenox / Coumadin. Added SCDs . Hx of bliat LE DVTs in the past. Hospital Course Summary Disclaimer The visit summary below is not to be considered part of the above Progress Note. RAFA ROSE Feb 06, 2017 08:19
[2017-02-06] MEDS: ACETAMINOPHEN 325 MG TABLET PO SCH ×2 (08:38→13:31)
[2017-02-06] MEDS: ENOXAPARIN 100 MG/ML INJECTION SQ SCH (08:39)
[2017-02-06] MEDS ORDERED: ACET-2321 PO (08:46)
[2017-02-06] MEDS ORDERED: TRAM50TA53 PO (08:46)
[2017-02-06] MEDS ORDERED: ENOX100D SQ (08:46)
[2017-02-06] MEDS ORDERED: POLY17PO6 PO (08:46)
[2017-02-06] MEDS ORDERED: MAGN400O4 PO (08:46)
--- NOTE | 2017-02-06 08:58 | DSPDOC ---
General Date Date DATE: 02/06/17 TIME: 08:55 Attending Physician Connor Guevara MD Admitting Physician Connor Guevara MD Consulting Physician Admitting Diagnosis PRIMARY DEGENERATIVE JOINT DISEASE LEFT KNEE Discharge Diagnosis Primary DJD left knee. Procedures Left total knee arthroplasty History of Present Illness HPI Elements This patient was admitted for elective surgical tx of end stage degenerative joint disease that failed to respond to conservative treatment. Further details of this is found in the admission H&P. Hospital Course After appropriate preoperative clearance and signing of operative consent, the patient was given IV antibiotics, according to orthopedic protocol. The patient was taken to the operating room and underwent elective left total knee arthroplasty. Following surgery, antibiotics were discontinued less than 24 hours according to joint protocol. Pt has a hx of bilat LE DVTs and factor VIII def. She was restarted on Lovenox 100mg SQ q 12hrs and Coumadin 12.5mg daily. She will get INR on Thursday and will stay on Lovenox 100mg SQ Q 12 hrs until the INR is done Thursday around Noon. SCDs added for additional DVT prevention. The dressing was clean, dry, and intact. Pain control was obtained via multimodal approach. Bowel motivation addressed with scheduled and PRN medications. Early mobilization was initiated through PT services. Discharge arrangements made by a collaborative effort between the patient and Case Management. Follow-up is scheduled in 2-3 weeks. Discharge instructions given by orthopedic providers and nursing staff at discharge. Discharge condition was good. Problems: (1) Degenerative arthritis of left knee Status: Chronic Assessment & Plan: Lovenox 100mg Q 12hrs and Coumadin protocol for VTE prophylaxis. SCD's and early mobilization encourage. Labs look good. She is afebrile. PT/OT services to improve independent function. Discharge Planning per Case Management. (2) Factor VIII deficiency Status: Chronic Assessment & Plan: Resume Lovenox / Coumadin. Added SCDs . Hx of bliat LE DVTs in the past. Ongoing Care Required?: No Laboratory Laboratory Tests Test 02/06/17 05:00 White Blood Count 5.6T/MM3 Red Blood Count 3.58M/MM3 Hemoglobin 10.5GM/DL Hematocrit 33.9% Mean Corpuscular Volume 94.7UM3 Mean Corpuscular Hemoglobin 29.3UUG Mean Corpuscular Hemoglobin Concent 31.0GM/DL RDW Standard Deviation 53.5FL Platelet Count 148T/MM3 Mean Platelet Volume 11.8UM3 Prothromb Time International Ratio 1.17 Turbidity < 20 Sodium Level 143MEQ/L Potassium Level 3.8MEQ/L Chloride Level 107MEQ/L Carbon Dioxide Level 31MEQ/L Anion Gap 5MEQ/L Blood Urea Nitrogen 16.0MG/DL Creatinine 0.8MG/DL Glomerular Filtration Rate Calc 74 BUN/Creatinine Ratio 20RATIO Glucose Level 100MG/DL Calculated Osmolality 276MOSM/KG Calcium Level 8.8MG/DL Icterus Index < 2 Chemistry Specimen Hemolysis < 15 Home Meds Active Scripts Polyethylene Glycol 3350 (Miralax) 17 Gm Powd.pack, 17 G PO DAILY Y for CONSTIPATION, #1 BOTTLE Take 17 Grams (1 capful), by mouth, once a day. Prov:RAFA ROSE 02/06/17 Magnesium Hydroxide (Milk of Magnesia) 400 Mg/5 Ml Oral.susp, 30 ML PO 0800 for 30 Days Prov:RAFA ROSE 02/06/17 Tramadol HCl (Ultram) 50 Mg Tablet, 50-100 MG PO Q4H Y for PAIN, #60 TAB Prov:RAFA RSOE 02/06/17 Acetaminophen (Tylenol) 325 Mg Tablet, 650 MG PO QID, #60 TAB Prov:RAFA ROSE 02/06/17 Enoxaparin Sodium (Lovenox) 100 Mg/Ml Syringe, 1 UNIT SQ BID, #6 Prov:RAFA ROSE 02/06/17 Reported Medications Glucosamine Sulfate 2Kcl (Glucosamine) 1,000 Mg Tablet, 1 TAB PO DAILY 01/23/17 Multivitamin (Multivitamins) 1 Each Tablet, 1 TAB PO DAILY 11/08/14 Calcium Carb/Vit D3/Minerals (Calcium 1,200 mg Tablet Chew) 1 Each Tab.chew, 1 TAB PO DAILY ON MON, WED, Thu11/08/14 Enoxaparin Sodium (Lovenox) Unknown Strength Disp.syrin, SQ DAILY 04/05/09 Warfarin Sodium (Warfarin Sodium) 10 Mg Tablet, 12.5 MG PO DAILY 04/04/09 Discontinued Reported Medications Acetaminophen (Tylenol Extra Strength) 500 Mg Tablet, 1-2 TAB PO Q6H Y for PAIN/ FEVER, TAB 3/24/17 Discharge Disposition Please refer to Case Management Notes for patient's disposition. Estimated Blood Loss 50.0 RAFA ROSE Feb 06, 2017 08:57
[2017-02-06] MEDS ORDERED: POLYETHYL.GLYCOL 3350 PACKET 17gm PO SCH (09:00)
[2017-02-06] MEDS ORDERED: DOCUSATE SODIUM 100 MG CAPSULE PO SCH (09:00)
--- NOTE | 2017-02-06 09:28 | NUR ---
CHARLA CM IN TO VISIT WITH PT. SHE IS ALERT AND ORIENTED. SHE PLANS TO DC HOME. SHE HAS FWW. SHE WILL SELF INJECTION LOVENOX SHE SHE PRE-OP. SHE USES [facility]. CM SPOKE WITH WILLIE NURSE FOR DR. SKINNER. SHE IS AWARE THAT PT WILL BEGIN PT/INR Thursday02/06/[address] SKINNER WILL RESUME FOLLOWING PT CHRONIC COUMADIN USE. PT WILL DO OUTPT PT AT [facility]. PT IS GIVEN CM CONTACT INFORMATION. LACE SCORE IS 6. Addendum: 02/06/17 at 0930 by ANABELL HARTMAN RN Amended: Links added.
--- NOTE | 2017-02-06 09:41 | NUR ---
CM LOVENOX 100MG BID #6 NO REFILL IS CALLED TO [facility] PER PT REQUEST. CM REQUESTS RETURN CALL WITH PT OUT OF POCKET COST FOR MEDICATION.
[2017-02-06] MEDS ORDERED: WARFARIN 5 MG TABLET PO ONE (12:00)
--- NOTE | 2017-02-06 12:02 | DSPDOC ---
General Date Date DATE: 02/06/17 TIME: 12:01 Attending Physician Connor Guevara MD Admitting Physician Connor Guevara MD Consulting Physician Admitting Diagnosis PRIMARY DEGENERATIVE JOINT DISEASE LEFT KNEE Discharge Diagnosis Primary DJD left knee. Procedures left total knee arthroplasty Diagnosis Left knee primary DJD History of Present Illness HPI Elements This patient was admitted for elective surgical tx of end stage degenerative joint disease that failed to respond to conservative treatment. Further details of this is found in the admission H&P. Hospital Course After appropriate preoperative clearance and signing of operative consent, the patient was given IV antibiotics, according to orthopedic protocol. The patient was taken to the operating room and underwent elective left total knee arthroplasty. Following surgery, antibiotics were discontinued less than 24 hours according to joint protocol. Pt has a hx of bilat LE DVTs and factor VIII def. She was restarted on Lovenox 100mg SQ q 12hrs and Coumadin 12.5mg daily. She will get INR on Thursday and will stay on Lovenox 100mg SQ Q 12 hrs until the INR is done Thursday around Noon. SCDs added for additional DVT prevention. The dressing was clean, dry, and intact. Pain control was obtained via multimodal approach. Bowel motivation addressed with scheduled and PRN medications. Early mobilization was initiated through PT services. Discharge arrangements made by a collaborative effort between the patient and Case Management. Follow-up is scheduled in 2-3 weeks. Discharge instructions given by orthopedic providers and nursing staff at discharge. Discharge condition was good. Problems: (1) Degenerative arthritis of left knee Status: Chronic Assessment & Plan: Lovenox 100mg Q 12hrs and Coumadin protocol for VTE prophylaxis. SCD's and early mobilization encourage. Labs look good. She is afebrile. PT/OT services to improve independent function. Discharge Planning per Case Management. (2) Factor VIII deficiency Status: Chronic Assessment & Plan: Resume Lovenox / Coumadin. Added SCDs . Hx of bliat LE DVTs in the past. Associated Postoperative Event: Acute P.O. Anemia Acute P.O. Anemia: Patient received IVF, No intervention required, HGB drop- acceptable range Laboratory Laboratory Tests Test 02/06/17 05:00 White Blood Count 5.6T/MM3 Red Blood Count 3.58M/MM3 Hemoglobin 10.5GM/DL Hematocrit 33.9% Mean Corpuscular Volume 94.7UM3 Mean Corpuscular Hemoglobin 29.3UUG Mean Corpuscular Hemoglobin Concent 31.0GM/DL RDW Standard Deviation 53.5FL Platelet Count 148T/MM3 Mean Platelet Volume 11.8UM3 Prothromb Time International Ratio 1.17 Turbidity < 20 Sodium Level 143MEQ/L Potassium Level 3.8MEQ/L Chloride Level 107MEQ/L Carbon Dioxide Level 31MEQ/L Anion Gap 5MEQ/L Blood Urea Nitrogen 16.0MG/DL Creatinine 0.8MG/DL Glomerular Filtration Rate Calc 74 BUN/Creatinine Ratio 20RATIO Glucose Level 100MG/DL Calculated Osmolality 276MOSM/KG Calcium Level 8.8MG/DL Icterus Index < 2 Chemistry Specimen Hemolysis < 15 Home Meds Active Scripts Polyethylene Glycol 3350 (Miralax) 17 Gm Powd.pack, 17 G PO DAILY Y for CONSTIPATION, #1 BOTTLE Take 17 Grams (1 capful), by mouth, once a day. Prov:RAFA ROSE 02/06/17 Magnesium Hydroxide (Milk of Magnesia) 400 Mg/5 Ml Oral.susp, 30 ML PO 0800 for 30 Days Prov:RAFA ROSE 02/06/17 Tramadol HCl (Ultram) 50 Mg Tablet, 50-100 MG PO Q4H Y for PAIN, #60 TAB Prov:RAFA ROSE 02/06/17 Acetaminophen (Tylenol) 325 Mg Tablet, 650 MG PO QID, #60 TAB Prov:RAFA ROSE 02/06/17 Enoxaparin Sodium (Lovenox) 100 Mg/Ml Syringe, 1 UNIT SQ BID, #6 Prov:RAFA ROSE 02/06/17 Reported Medications Glucosamine Sulfate 2Kcl (Glucosamine) 1,000 Mg Tablet, 1 TAB PO DAILY 01/23/17 Multivitamin (Multivitamins) 1 Each Tablet, 1 TAB PO DAILY 11/08/14 Calcium Carb/Vit D3/Minerals (Calcium 1,200 mg Tablet Chew) 1 Each Tab.chew, 1 TAB PO DAILY ON MON, WED, Thu11/08/14 Enoxaparin Sodium (Lovenox) Unknown Strength Disp.syrin, SQ DAILY 04/05/09 Warfarin Sodium (Warfarin Sodium) 10 Mg Tablet, 12.5 MG PO DAILY 04/04/09 Discontinued Reported Medications Acetaminophen (Tylenol Extra Strength) 500 Mg Tablet, 1-2 TAB PO Q6H Y for PAIN/ FEVER, TAB 01/23/17 Discharge Disposition Please refer to Case Management Notes for patient's disposition. Estimated Blood Loss 50.0 KARLY GUILLEN Feb 06, 2017 12:02
--- NOTE | 2017-02-06 14:25 | NUR ---
DISMISSAL PT ABLE TO WALK WITH STAND BY ASSIST USING GB AND WALKER. DENIES DIZZINESS OR DISCOMFORT R/T AMBULATION. STATES PO PAIN MEDS MANAGING PAIN WELL. INCISIONAL DRESSING REMAINS D&I. TOLERATING SOLID FOOD WITHOUT N/V. WENT OVER WRITTEN DISMISSAL INSTRUCTIONS WITH PT INCLUDING DIET, ACTIVITY/RESTRICTIONS, WOUND CARE, MED CHANGES, F/U, LAB AND P.T. APPTS, S/SX TO REPORT. PT VERBALIZED UNDERSTANDING. PT'S PERSONAL BELONGINGS GATHERED INCLUDING SCRIPTS, CELL PHONE AND ENGINEER TECHNICIAN, POLAR PACK AND PILLOW. PT TAKEN TO ER ENTRANCE FOR TRANSPORT HOME BY DAUGHTER.
[2017-02-07] MEDS ORDERED: MILK OF MAGNESIA 30 ML SUSP PO SCH (08:00)
[2017-02-07] MEDS ORDERED: BISACODYL 10 MG SUPPOSITORY RECTALLY SCH (20:00)
== END 2017-02-06 14:25 | disposition home or self-care (01) | DRG 469 ==
LOC: SRG 07:50
PROVIDERS: ADMIT Orthopaedic Surgery; ATTEND Orthopaedic Surgery
PROC: 0SRD0J9 Replacement of Left Knee Joint with Synthetic Substitute, Cemented, Open Approach (ICD-10-PCS; principal; 2017-02-05 11:15)
DX: M17.0 Bilateral primary osteoarthritis of knee (principal); D66 Hereditary factor VIII deficiency; D64.9 Anemia, unspecified; Z86.718 Personal history of other venous thrombosis and embolism; Z79.01 Long term (current) use of anticoagulants; E78.00 Pure hypercholesterolemia, unspecified; I10 Essential (primary) hypertension; E66.9 Obesity, unspecified; Z68.38 Body mass index [BMI] 38.0-38.9, adult
CPT/HCPCS: 36415; 80048; 85025; 85027; 85610; 94664; 94762

== ENCOUNTER 2017-07-09 05:24 | Inpatient (IN) ==
[2017-07-09 05:49] VITALS: BMI 33.5
--- NOTE | 2017-07-09 05:50 | History & Physical Update ---
- History and Physical Update Date: 07/09/17 Update: I evaluated this patient and found no changes in the history and clinical exam findings. The treatment plan and recommendations are also unchanged from the previous documentation.
[2017-07-09] MEDS ORDERED: LIDOCAINE 1% (10mg/ml) 2mL INJ PF SDV ID ONE (06:00)
[2017-07-09] MEDS ORDERED: METOCLOPRAMIDE 10mg/2ml INJECTION IVP ONE (06:00)
[2017-07-09] MEDS ORDERED: ONDANSETRON 4 MG/2 ML INJECTION IVP ONE (06:00)
[2017-07-09] MEDS ORDERED: NOZIN NASAL SWAB NAS ONE ×2 (06:00→09:54)
[2017-07-09] MEDS ORDERED: FAMOTIDINE PB 20 MG/50 ML BAG IV ONE (06:00)
[2017-07-09] MEDS ORDERED: DEXAMETHASONE 4 MG/ML INJECTION IVP ONE (06:00)
[2017-07-09] MEDS ORDERED: MELOXICAM 15 MG TABLET PO ONE (06:00)
[2017-07-09] MEDS ORDERED: ACETAMINOPHEN 500 MG TABLET PO ONE (06:00)
[2017-07-09] MEDS ORDERED: CEFAZOLIN 1 G INJECTION IVP ONE (06:00)
[2017-07-09] MEDS ORDERED: VANCOMYCIN 1,000 MG INJECTION ONE (06:44)
[2017-07-09] MEDS: LR 1,000 ML IV SCH ×2 (06:45→08:15)
--- NOTE | 2017-07-09 07:00 | Anesthesia Preoperative Report ---
Anesthesia Preoperative Record - Date and Time Date: 07/09/17 Preoperative Diagnosis: degen arthritis DJD M17.11 Proposed Procedure: Right TKA NPO Since Date: 07/09/17 NPO Since Time: 23:55 Allergies/Adverse Reactions: Allergies Allergy/AdvReac Type Severity Reaction Status Date / Time No Known Drug Allergies Allergy Unknown Verified 07/09/17 06:10 - Vital Signs Vital Signs: Temperature 98.1 F 07/09/17 05:48 Pulse Rate 69 07/09/17 06:14 Respiratory Rate 17 07/09/17 05:48 Blood Pressure 145/91 H 07/09/17 05:48 Pulse Oximetry 98 07/09/17 05:48 Height and Weight: Height 5 ft 4.5 in Weight 90.1 kg Body Mass Index 33.5 - Medications Inpatient Medications: Current Medications Lactated Ringer's (Lactated Ringers) 1,000 mls @ 50 mls/hr IV .Q20H ALNODRA Epinephrine HCl 0.25 mg/Bupivacaine HCl 30 ml/Morphine Sulfate 15 mg/Ketorolac Tromethamine 60 mg/Sodium Chloride 65.25 mls @ 1 mls/hr OPSITE INTRAOP ONE PRN Reason: Protocol Stop: 07/12/17 01:14 Miscellaneous Medication (Tranexamic 1gm/Ns 100 Irr Mix) 100 ml IR O ONE Stop: 07/09/17 16:12 Sodium Chloride (Iv Flush) 10 - 80 ml IVF PRN PRN PRN Reason: Flushing Home Medications: Home Medications Medication Instructions Recorded Confirmed Type Multivitamin [Multivitamins] 1 tab PO DAILY #0 11/08/14 07/09/17 History Acetaminophen [Tylenol] 1,000 mg PO Q5H PRN 07/02/17 07/02/17 History Calcium Carbonate/Vitamin D3 1 each PO 3XW 07/02/17 07/09/17 History [Calcium 1,000 + D3 Caplet] Enoxaparin Sodium [Enoxaparin 150 mg SQ DAILY 07/08/17 07/08/17 History Sodium] warfarin 10 mg tablet 12.5 mg PO 1800 tab 07/08/17 07/09/17 History Is Patient on Beta Kita?: No - Medical History Respiratory: DENIES: Asthma, Bronchitis, Chronic Obstructive Pulmonary Disease (COPD), Dyspnea, Orthopnea, Pulmonary Embolism, Pneumonia, Upper Respiratory Infection, Pulmonary Edema, Sleep Apnea, Tuberculosis, Other Cardiovascular: DENIES: Abnormal EKG, Angina, Arrhythmia, Congestive Heart Failure, Coronary Artery Disease, Heart Murmur, Hypertension, Hypotension, High Cholesterol, Myocardial Infarction, Rheumatic Fever, Valvular Heart Disease, Other Gastrointestional: DENIES: Obstructive Bowel, Hepatitis, Cirrhosis, Nausea or Vomiting Present, Gastroesophageal Reflux Disease, Gastrointestinal Bleeding, Hiatal Hernia, Ulcer , Morbid Obesity, Other Neuro/Musculoskeletal: Denies: HX.MS.OSAR, Back Problems, Cerebrovascular Accident, Depression, Headaches, Loss of Consciousness, Muscle Weakness, Neuromuscular Disorder, Paralysis, Paresthesia, Syncope, Seizures, Other Renal/Endocrine: DENIES: Diabetes Mellitus Type 1, Diabetes Mellitus Type 2, Renal Failure, Dialysis, Thyroid Disease, Weight Loss, Weight Gain, Other Other History: Reports: Blood Transfusions (Factor 8) DENIES: Anesthesia Reactions, Now, Chemotherapy, Cancer, Hemophilia , Malignant Hyperthermia, Sickle Cell Disease, Other - Surgical History HEENT Surgeries: Reports: Other (RADIAL KERATOTOMY) GI Surgery/Treatments: Reports: Cholecystectomy (open) Musculoskeletal Surgery/Tx: Reports: Carpal Tunnel Release (right), Total Knee Replacement (left TKA ), Other (Lauri fractured arms; bunionectomy) Reproductive Surgery/Treatment: Reports: Laparoscopy (RSO) Anesthesia Reactions: None Hx Family Anesthesia Reaction: No History of Motion Sickness: No - Social History Smoking Status: Never smoker Hx Chewing Tobacco Use: No Second Hand Exposure: No Substance Use Type: does not use Alcohol Intake: current Alcohol Intake Frequency: holidays/special occasions only - Pertinent Findings Laboratory: CBC and BMP 07/09/17 05:57 EKG Rhythm: Normal Sinus Rhythm - Physical Exam Respiratory Exam: Present: lungs clear, bilateral breath sounds equal Cardiovascular Exam: Present: regular rate and rhythm, no murmur - Airway Assessment Mallampati Score: I TMD: 3 Fingerbreadths Neck Extension: good Overall Assessment: no airway concerns - ASA ASA Score: 2 - Plan Regional/Trunk Block: Spinal Peripheral Nerve Block: Saphenous-Right - Discussion Discussion: Discussed risks/options/alternatives of anesthesia and questions answered. Patient consents. Nursing pain assessment noted. Present for Discussion: family member Attestation Statement: Prior to the delivery of any anesthetic medication, I examined the patient, developed the plan, obtained the patient's consent and discussed the risk and benefits of the procedure with the patient/guardian. - Additional Information Seen by Anesthesia: Yes
[2017-07-09] MEDS ORDERED: MIDAZOLAM 2mg/2ml INJECTION ONE (07:11)
[2017-07-09] MEDS ORDERED: BUPIVACAINE 0.75%/DEXTROSE 8.5% SPINAL 2 ML AMPULE IJ ONE (07:12)
[2017-07-09] MEDS ORDERED: FentaNYL 100 MCG/2 ML INJECTION ONE (07:12)
[2017-07-09] MEDS ORDERED: PROPOFOL 500 MG/50 ML VIAL IV ONE (07:24)
[2017-07-09] MEDS ORDERED: KETAMINE 500 MG/10 ML INJECTION ONE (07:25)
[2017-07-09] MEDS ORDERED: VANCOMYCIN 1,000 MG INJECTION IAR ONE (07:46)
[2017-07-09] MEDS ORDERED: EPINEPHrine 0.25 MG, BUPIVACAINE 0.25% PF 30 ML, MORPHINE SULFATE 15 MG, KETOROLAC INJ ... OPSITE ONE (08:00)
[2017-07-09] MEDS ORDERED: PROPOFOL 20 ML ONE ×2 (08:39→09:06)
[2017-07-09] MEDS ORDERED: TRANEXAMIC ACID 1,000 MG in NS 100 ML IV ONE (09:00)
--- NOTE | 2017-07-09 09:04 | Operative Note ---
- Procedure Side: right Preoperative Diagnosis: knee primary DJD Postoperative Diagnosis: Same as preoperative diagnosis. Operation: total knee arthroplasty Surgeon: Vi Guevara MD Software Engineering Associate Manager: Ranjit Rivas Complications: None. Regional/Trunk Block: Spinal Peripheral Nerve Block: Saphenous-Right Estimated Blood Loss: See Anesthesia Record. Fluids: Please see Anesthesia Record. Description of Procedure: Mrs. Veliz and her right knee were identified and marked in the preoperative holding area. She was brought back to the operating suite after a saphenous nerve block was placed in the preoperative holding area. Spinal anesthetic was administered and she was placed supine on the operating table. The right lower extremity was prepped and draped in my normal sterile fashion. Timeout was performed. The Vivocha robot was used during the surgery. She has correctable valgus deformity. She also slightly hyperextended. A standard anterior midline incision followed by medial parapatellar arthrotomy was performed. Anterior fat pad and meniscus were removed. The patella was resurfaced to a size 29. I then placed a tibial array to 2 poke hole incisions in the mid tibia just medial to the crest. The pins were placed bicortically. I then placed a second femoral array again using bicortical pins in the distal femoral metaphysis medially. Checkpoints were then placed both in the femur and the tibia. The bone was then registered with the Vivocha robot. Osteophytes were removed and gaps were captured both 90 and 0 with correction. Because of her hyperextension we plan for 17 mm extension gaps. This was achieved by putting the tibial component in 2 of valgus and moving the distal femoral cut distally. The Stephan robotic arm was then used to assist with the bone cuts. Posterior osteophytes and remaining meniscus were removed. Trial components were placed. We used a 4 femur and a 4 tibia with a 11 mm spacer. She tracked well and was well balanced throughout range of motion. The leg was exsanguinated and the tourniquet inflated to 250 mmHg. The bone was prepared for cementing and components were cemented into place and allowed to cure in extension. The tourniquet was let down and hemostasis obtained with electrocautery. The knee was ranged one more time to ensure good stability, balance and patellar tracking. 1 g of TXA was allowed to sit in the wound for 5 minutes and then suctioned out. 1 g of vancomycin powder was then placed into the knee joint. The capsulotomy was then closed with #1 Vicryl. I then left my grants assistant to close the subcutaneous tissue with 2-0 Vicryl. Running 4-0 Monocryl will be used in the subcuticular layer. Dermabond will be used on the skin followed by sterile dressing. After drapes are removed patient will be taken to recovery room under the care of anesthesia.
[2017-07-09] MEDS ORDERED: DiphenhydrAMINE 50 MG/ML INJECTION IVP PRN (09:54)
[2017-07-09] MEDS ORDERED: LORazepam 1 MG TABLET PO PRN (09:54)
[2017-07-09] MEDS ORDERED: NAPROXEN 220 MG TABLET PO PRN (09:54)
[2017-07-09] MEDS ORDERED: ONDANSETRON 4 MG/2 ML INJECTION IVP PRN (09:54)
[2017-07-09] MEDS ORDERED: Oxycodone *IR* 5 MG TABLET PO PRN (09:54)
[2017-07-09] MEDS ORDERED: DiphenhydrAMINE 25 MG CAPSULE PO PRN (09:54)
--- NOTE | 2017-07-09 09:55 | Anesthesia Procedure Note ---
Peripheral Nerve Blockade - Procedure Physician: Connor Guevara MD Date: 07/09/17 Surgical Procedure: Right TKA Discussion: Discussed risks/options/alternatives of anesthesia and questions answered. Patient consents. Nursing pain assessment noted. Block Start: 09:45 Block Stop: 09:50 Blocked Employed: Adductor Canal Indication: Post-Operative Pain Approach: Right Side Confirmed Position: Supine Patient: Consent, Risks/Benefits Discussed, Informed, Post Block Act. Discussed IV Sedation: No (Spinal) Sedation: Awake Initial Vital Signs: Temperature 98.1 F 07/09/17 05:48 Temperature Source Oral 07/09/17 05:48 Pulse Rate 71 07/09/17 05:48 Respiratory Rate 17 07/09/17 05:48 Blood Pressure 145/91 H 07/09/17 05:48 Blood Pressure Mean 109 07/09/17 05:48 Blood Pressure Position Sitting 07/09/17 05:48 Pulse Oximetry 98 07/09/17 05:48 Oxygen Delivery Method 07/09/17 05:48 Post Vital Signs: Temperature 98.1 F 07/09/17 05:48 Pulse Rate 69 07/09/17 09:15 Respiratory Rate 07/09/17 09:15 Blood Pressure 145/91 H 07/09/17 05:48 Pulse Oximetry 98 07/09/17 09:15 Initial Pain Pain Score: 0 Post Block Pain Score: 0 Prep: Chlorhexadine/ETOH Ultrasound Used?: Yes - Injectate Ropivacaine (%): 0.5 Ropivacaine (mL): 15 Was Epi 1:200,000 Used?: No Injection: Injection made incrementally with constant monitoring and aspiration every ml
--- NOTE | 2017-07-09 09:55 | Anesthesia Postoperative Note ---
- Date and Time Date: 07/09/17 Time: 09:55 - Status Patient Participated in Evaluation: Patient Participated in Person Vital Signs: Temperature 98.1 F 07/09/17 05:48 Pulse Rate 69 07/09/17 09:15 Respiratory Rate 07/09/17 09:15 Blood Pressure 145/91 H 07/09/17 05:48 Pulse Oximetry 98 07/09/17 09:15 Respiratory Function: Airway Patent, Regular Respirations Cardiovascular Function: Regular Pulse EKG Rhythm: Normal Sinus Rhythm Mental Status: Alert and Oriented Pain Intensity: 0 Hydration: IV Infusing Complications During Recover: None Apparent - Follow-Up Instructions Instructions: Per Surgeon
--- NOTE | 2017-07-09 10:12 | XRay Report ---
Indication: postoperative image PROCEDURE: XR knee RT 2V: Encounter: Initial Comparison: July 08, 2017 Findings: Postoperative changes of right total knee replacement are seen. There is expected postoperative subcutaneous gas. No evidence of hardware failure or acute fracture. No retained radiopaque surgical instruments or sponges. Overlying material causing artifact. Impression: New right total knee prosthesis without evidence of immediate complication. .
[2017-07-09] MEDS: NS 1,000 ML IV SCH (10:34)
[2017-07-09] MEDS: DOCUSATE SODIUM 100 MG CAPSULE PO SCH ×2 (10:40→20:53)
[2017-07-09] MEDS: POLYETHYL GLYCOL 3350 17gm PACKET PO SCH (10:40)
[2017-07-09] MEDS: ACETAMINOPHEN 325 MG TABLET PO SCH ×4 (10:40→20:53)
[2017-07-09] MEDS ORDERED: WARFARIN 7.5 MG TABLET PO SCH (12:00)
[2017-07-09] MEDS ORDERED: WARFARIN 6 MG TABLET PO SCH (12:00)
--- NOTE | 2017-07-09 12:57 | Pharmacy Consult ---
Pharmacy Consult-Warfarin - Laboratory Information 07/09/17 05:57 INR 1.06 - Consult Information COUMADIN CONSULT (Initial): Dx: DVT history (factor VIII deficiency) Baseline INR = 1.06. Will give Warfarin 12mg today (home dose of 12.5mg daily). Thank you.
[2017-07-09] MEDS: NOZIN NASAL SWAB NAS SCH ×2 (14:40→22:19)
[2017-07-09] MEDS: CEFAZOLIN 2 G in NS 100 ML IV SCH ×2 (14:42→22:21)
[2017-07-09] MEDS ORDERED: SALINE FLUSH 10ml SYRINGE IVF PRN (16:11)
[2017-07-09] MEDS ORDERED: TRANEXAMIC ACID 1gm/NS 100ml IRR MIX IR ONE (16:11)
[2017-07-09] MEDS ORDERED: ENOXAPARIN 150 MG/ML INJECTION SQ SCH (17:00)
[2017-07-09] MEDS: ENOXAPARIN 150 MG/ML INJECTION SQ SCH (20:53)
[2017-07-09] MEDS ORDERED: SENNOSIDES 8.6 MG TABLET PO SCH (21:00)
[2017-07-10] MEDS: NS 1,000 ML IV SCH (00:47)
[2017-07-10 03:56] VITALS: RESP 16
[2017-07-10] MEDS: NOZIN NASAL SWAB NAS SCH ×2 (06:33→16:11)
[2017-07-10] MEDS ORDERED: SENNOSIDES 8.6 MG TABLET PO PRN (07:17)
--- NOTE | 2017-07-10 08:17 | Orthopedic Progress Note ---
Date: Subjective/Severity of Illness: Mrs Veliz is doing great. She has been up with good tolerance. Her max pain level has been a 2-3. No CP, cough or SOA. She expects to go home later today. Orthopedic Objective PO Vital signs: Temperature 99.7 F 07/10/17 07:27 Pulse Rate 73 07/10/17 07:27 Respiratory Rate 16 07/10/17 07:27 Blood Pressure 148/73 H 07/10/17 07:27 Pulse Oximetry 96 07/10/17 07:27 Height and Weight: Height 5 ft 4.5 in Weight 209 lb 7.026 oz Body Mass Index 33.5 - Constitutional General Appearance: Present: alert, no acute distress - Respiratory Exam Present: non-labored - Extremities Exam Extremities: Present: pulses intact, normal capillary refill. Absent: calf tenderness - Surgical Site Incision: Mepilex dressing intact, no drainage - Integumentary Exam Present: pink, warm, dry - Neurological Exam Present: no deficits - Psychiatric Exam Present: alert, normal affect - Labs Result Diagrams: 07/10/17 04:00 07/10/17 04:00 Abnormal lab results 07/10/17 07/10/17 Range/Units 04:00 04:00 WBC 3.4 L (4.5-11.0) T/MM3 RBC 3.76 L (4.00-5.20) M/MM3 Hgb 11.0 L D (12-16) GM/DL Hct 35.1 L D (36-46) % RDW Std Deviation 58.1 H (36.9-50.2) FL INR 1.23 H (0.99-1.21) H & H 07/09/17 07/10/17 Range/Units 05:57 04:00 Hgb 12.9 11.0 L D (12-16) GM/DL Hct 40.6 35.1 L D (36-46) % Coagulation 07/09/17 07/10/17 Range/Units 05:57 04:00 INR 1.06 1.23 H (0.99-1.21) Orthopedic Assessment and Plan - Anticoagulation Therapy Anticoagulation: Resume home anticoagulant (Will need Lovenox for 5 days (150mg daily) and resume her chronic Coumadin dose. Dr Orellana to resume INR management after discharge.) Hospital Course Summary Disclaimer: The visit summary below is not to be considered part of the above Progress Note.
[2017-07-10] MEDS: DOCUSATE SODIUM 100 MG CAPSULE PO SCH (08:26)
[2017-07-10] MEDS: ACETAMINOPHEN 325 MG TABLET PO SCH ×3 (08:26→16:11)
[2017-07-10] MEDS: POLYETHYL GLYCOL 3350 17gm PACKET PO SCH (08:26)
--- NOTE | 2017-07-10 08:40 | Pharmacy Consult ---
Pharmacy Consult-Warfarin - Laboratory Information 07/09/17 07/10/17 05:57 04:00 INR 1.06 1.23 H COUMADIN CONSULT: 56 yo female scheduled for a right TKA. 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 The patient has been on anticoagulation theray with a home dose of Warfarin 12.5 mg daily. Date INR Dose 07/09 1.06 12 mg 07/10 1.23 Plan 12.5 mg I will give warfarin 12.5 mg today at noon. The Pharmacy will continue to monitor the INR's and adjust the dosage of the Coumadin accordingly. Thank you for the Protocol, Jordi Palmer, Pharmacist
[2017-07-10 11:53] VITALS: O2SAT 100
[2017-07-10] MEDS ORDERED: WARFARIN 5 MG TABLET PO SCH (12:00)
--- NOTE | 2017-07-10 13:32 | Discharge Summary ---
Orthopedic Discharge Info Date of admission: 07/09/17 05:24 Primary care physician: Cam Orellana MD Attending Physician: Connor Guevara MD Consults: 07/09/17 05:35 Consult to Anesthesiology [CONS] Routine Consulting Provider: TATI Polk Reason For Exam: Preoperative Assessment 07/09/17 09:54 Case Management Consult [CONS] Routine Reason For Exam: Discharge Planning DME-Walker [CONS] Routine Height: 5 ft 4.5 in Weight: 198 lb 10.184 oz Comment: change dressing in 2 weeks Pharmacy Consult [CONS] Routine Pharmacy Consult: Coumadin/Warfarin Total Joint Outpatient Therapy [CONS] Routine Comment: change dressing in 2 weeks - Procedures Procedures: Procedures Right TKA - Laboratory Result Diagrams: 07/10/17 04:00 07/10/17 04:00 Laboratory: Abnormal lab results 07/10/17 07/10/17 Range/Units 04:00 04:00 WBC 3.4 L (4.5-11.0) T/MM3 RBC 3.76 L (4.00-5.20) M/MM3 Hgb 11.0 L D (12-16) GM/DL Hct 35.1 L D (36-46) % RDW Std Deviation 58.1 H (36.9-50.2) FL INR 1.23 H (0.99-1.21) H & H 07/09/17 07/10/17 Range/Units 05:57 04:00 Hgb 12.9 11.0 L D (12-16) GM/DL Hct 40.6 35.1 L D (36-46) % Coagulation 07/09/17 07/10/17 Range/Units 05:57 04:00 INR 1.06 1.23 H (0.99-1.21) Orthopedic Discharge HPI - HPI Comments This patient was admitted for elective surgical tx of end stage degenerative joint disease that failed to respond to conservative treatment. Further details of this is found in the admission H&P. Orthopedic Hospital Course Hospital course: 07/10/17 13:27 After appropriate preoperative clearance and signing of operative consent, the patient was given IV antibiotics, according to orthopedic protocol. The patient was taken to the operating room and underwent elective joint arthroplasty. Following surgery, antibiotics were discontinued less than 24 hours according to joint protocol. Appropriate anticoagulants were initiated and SCDs added for DVT prevention. The dressing was clean, dry, and intact. Pain control was obtained via multimodal approach. Bowel motivation addressed with scheduled and PRN medications. Early mobilization was initiated through PT services. Discharge arrangements made by a collaborative effort between the patient and Case Management. Follow-up is scheduled in 2-3 weeks. Discharge instructions given by orthopedic providers and nursing staff at discharge. Discharge condition was good. Ongoing care required?: No - Postoperative Anemia patient received IVF, labs monitored daily, no intervention required, HGB drop- acceptable Discharge Plan - Med Rec/Dispo Referrals/Follow Up: Connor Guevara MD [Physician] - 08/03/17 2:45 pm Sriram Instructions: [facility] Postop Instructions Additional Instructions: [facility] ON 07/13/2017 AT 11:00AM FOR PHYSICAL THERAPY EVAL. PHONE [phone] VIA [employer] TWICE A WEEK (MONDAYS AND THURSDAYS) BEGINNING . DR ORELLANA WILL RESUME MONITORING YOUR COUMADIN USE. PHONE Prescriptions: New Oxycodone *Ir* [Roxicodone *Ir*] 5 - 15 mg PO Q3H PRN #60 tab PRN Reason: Breakthrough Pain Acetaminophen [Tylenol] 650 mg PO QID #100 tab Naproxen [Aleve] 440 mg PO BID PRN #60 tab PRN Reason: Pain Continue Enoxaparin Sodium 150 mg SQ DAILY #5 syringe Multivitamin [Multivitamins] 1 tab PO DAILY #0 Calcium Carbonate/Vitamin D3 [Calcium 1,000 + D3 Caplet] 1 each PO 3XW warfarin 10 mg tablet 12.5 mg PO 1800 tab Discontinued Acetaminophen [Tylenol] 1,000 mg PO Q5H PRN PRN Reason: Pain - Disposition 01 Discharged Home, Self-Care
[2017-07-10 16:40] VITALS: BP 166/75; PULSE 66; TEMP 98.8
[2017-07-10] MEDS: ENOXAPARIN 150 MG/ML INJECTION SQ SCH (17:26)
[2017-07-11] MEDS ORDERED: BISACODYL 10 MG SUPPOSITORY RECTALLY SCH (20:00)
== END 2017-07-10 17:35 | disposition home or self-care (01) | DRG 469 ==
LOC: SRG 05:24
PROVIDERS: ADMIT Orthopaedic Surgery; ATTEND Orthopaedic Surgery